=== PATIENT | male | born 1990 | race Caucasian/White ===

== ENCOUNTER 2017-03-20 20:37 | Emergency (ER) | payer SELFPAY ==
[2017-03-20 21:08] LABS: Hematocrit 50 % (42-52); Hemoglobin 16.8 g/dl (14.0-18.0); Mean Corpuscular HGB Conc 34 g/dl (31-36); Mean Corpuscular Hemoglobin 30 pg (27-31); Mean Corpuscular Volume 90 fL (80-94); Mean Platelet Volume 9 um3 (7.4-10.4); Red Blood Count 5.54 10^6/ul (4.0-5.4); Red Cell Distribution Width 13 % (10.5-15); White Blood Count 8.1 10^3/ul (3.5-10.8)
[2017-03-20 21:21] LABS: BUN/Creatinine Ratio 8.5 (8-20); Calcium 9.3 mg/dL (8.6-10.3); EGFR African American 109.5 (>60); EGFR Non-African American 85.1 (>60); Potassium 3.7 mmol/L (3.5-5.0)
--- NOTE | 2017-03-20 21:30 | RAD ---
INDICATION: Head injury. COMPARISON: There are no prior studies available for comparison. TECHNIQUE: Contiguous axial sections of the brain were obtained from the skull base to the vertex without contrast. FINDINGS: The ventricles, cisterns and sulci are within normal limits. No significant focal abnormality or mass effect is seen. There is no evidence for hemorrhage. No significant focal osseous abnormality is seen. The visualized portion of the paranasal sinuses and mastoid air cells appear clear. IMPRESSION: NO EVIDENCE FOR ACUTE INTRACRANIAL ABNORMALITY.
--- NOTE | 2017-03-20 21:35 | ED ---
Lucy Amezquita Edward, scribed for Obi Darden MD on 03/20/17 at 2049 . Substance Abuse/Use - HPI Summary HPI Summary: 26 y/o male brought in by police to ED for EtOH abuse tonight at a concert and s /p fall earlier tonight, per police. Patient does not remember the fall but presents to the ED with a forehead abrasion and injured L elbow. At triage, the patient c/o throbbing ENGLISH rated 3/10 in severity. The L elbow is wrapped. The patient was intoxicated today at a concert and became violent, per police. Patient has calmed down in the ED. Patient denies any other drug use. - History Of Current Complaint Chief Complaint: EDSubstanceAbuse Stated Complaint: 2208 Time Seen by Provider: 03/20/17 20:46 Hx Obtained From: Patient Onset/Duration of Drug/ETOH Abuse: Hours - Starting today Timing Of Abuse: Binge Use - Grassroots Associated Signs And Symptoms: Other: - Forehead abrassion and L elbow injury - Allergies/Home Medications Allergies/Adverse Reactions: Allergies Allergy/AdvReac Type Severity Reaction Status Date / Time No Known Allergies Allergy Verified 03/20/17 20:59 PMH/Surg Hx/FS Hx/Imm Hx Previously Healthy: Yes Cardiovascular History: Denies: Hx Myocardial Infarction Respiratory History: Denies: Hx Chronic Obstructive Pulmonary Disease (COPD) Sensory History: Denies: Hx Legally Blind Psychiatric History: Denies: Other Psychiatric Issues/Disorders Infectious Disease History: Denies: Traveled Outside the [place] in Last 30 Days - Social History Occupation: Employed Full-time - [employer] Alcohol Use: Weekly Hx Substance Use: No Substance Use Type: Reports: None Hx Tobacco Use: Yes Smoking Status (MU): Light Every Day Tobacco Smoker Type: Cigarettes Do You Chew or Dip Tobacco: No Review of Systems Constitutional: Negative Eyes: Negative ENT: Negative Cardiovascular: Negative Respiratory: Negative Gastrointestinal: Negative Genitourinary: Negative Musculoskeletal: Other - L elbow injury Skin: Other - Forehead abrasion Positive: Headache Psychological: Normal All Other Systems Reviewed And Are Negative: Yes Physical Exam Triage Information Reviewed: Yes Vital Signs On Initial Exam: Initial Vitals Temp Pulse Resp BP Pulse Ox 98.3 F 98 20 155/131 95 03/20/17 20:42 03/20/17 20:42 03/20/17 20:42 03/20/17 20:42 03/20/17 20:42 Vital Signs Reviewed: Yes Appearance: Positive: Well-Appearing, No Pain Distress Skin: Positive: Warm Head/Face: Positive: Other - abrasion to forhead Eyes: Positive: EOMI, SUNDAR ENT: Positive: TMs normal Neck: Positive: Supple, Nontender Respiratory/Lung Sounds: Positive: Clear to Auscultation, Breath Sounds Present Cardiovascular: Positive: RRR Abdomen Description: Positive: Nontender, Soft Bowel Sounds: Positive: Present Neurological: Positive: Sensory/Motor Intact, Alert, Oriented to Person Place, Time, Normal Gait Diagnostics - Vital Signs Vital Signs Temp Pulse Resp BP Pulse Ox 03/20/17 20:42 98.3 F 98 20 155/131 95 - Laboratory Lab Results: Lab Results 03/20/17 03/20/17 Range/Units 21:00 21:00 WBC 8.1 (3.5-10.8) 10^3/ul RBC 5.54 H (4.0-5.4) 10^6/ul Hgb 16.8 (14.0-18.0) g/dl Hct 50 (42-52) % MCV 90 (80-94) fL MCH 30 (27-31) pg MCHC 34 (31-36) g/dl RDW 13 (10.5-15) % Plt Count 209 (150-450) 10^3/ul MPV 9 (7.4-10.4) um3 Neut % (Auto) 47.0 (38-83) % Lymph % (Auto) 36.7 (25-47) % [place] % (Auto) 13.8 H (1-9) % Eos % (Auto) 1.4 (0-6) % Baso % (Auto) 1.1 (0-2) % Absolute Neuts (auto) 3.8 (1.5-7.7) 10^3/ul Absolute Lymphs (auto) 3.0 (1.0-4.8) 10^3/ul Absolute Monos (auto) 1.1 H (0-0.8) 10^3/ul Absolute Eos (auto) 0.1 (0-0.6) 10^3/ul Absolute Basos (auto) 0.1 (0-0.2) 10^3/ul Absolute Nucleated RBC 0.01 10^3/ul Nucleated RBC % 0.1 Sodium 140 (133-145) mmol/L Potassium 3.7 (3.5-5.0) mmol/L Chloride 106 (101-111) mmol/L Carbon Dioxide 25 (22-32) mmol/L Anion Gap 9 (2-11) mmol/L BUN 9 (6-24) mg/dL Creatinine 1.06 (0.67-1.17) mg/dL Est GFR ( Amer) 109.5 (>60) Est GFR (Non-Af Amer) 85.1 (>60) BUN/Creatinine Ratio 8.5 (8-20) Glucose 95 (70-100) mg/dL Calcium 9.3 (8.6-10.3) mg/dL Serum Alcohol Pending Result Diagrams: 03/20/17 21:00 03/20/17 21:00 Lab Statement: Any lab studies that have been ordered have been reviewed, and results considered in the medical decision making process. - CT BRAIN CT CT Interpretation: No Acute Changes - NO EVIDENCE FOR ACUTE INTRACRANIAL ABNORMALITY. CT Interpretation Completed By: Radiologist Re-Evaluation - Re-Evaluation First Eval Change: Improved Course/Dx - Course Assessment/Plan: 26 y/o male brought in by police to ED for EtOH abuse tonight at a concert and s/p fall earlier tonight, per police. Patient does not remember the fall but presents to the ED with a forehead abrasion and injured L elbow. BRAIN CT SHOWS NO EVIDENCE FOR ACUTE INTRACRANIAL ABNORMALITY. After waiting for blood alcohol levels to drop, pt discharged home. - Diagnoses Provider Diagnoses: Substance abuse Discharge - Discharge Plan Condition: Improved Disposition: HOME Patient Education Materials: Abuse of Alcohol (ED) The documentation as recorded by the Lucy gonzáles Edward accurately reflects the service I personally performed and the decisions made by , Obi Darden MD.
[2017-03-21 04:52] VITALS: BP 91/51
== END 2017-03-21 05:01 | disposition home or self-care (01) ==
LOC: ED 20:37
DX: F10.10 Alcohol abuse, uncomplicated (principal); Y90.8 Blood alcohol level of 240 mg/100 ml or more; S00.81XA Abrasion of other part of head, initial encounter; S59.902A Unspecified injury of left elbow, initial encounter; W19.XXXA Unspecified fall, initial encounter; Y93.89 Activity, other specified; Y92.89 Other specified places as the place of occurrence of the external cause; F17.210 Nicotine dependence, cigarettes, uncomplicated
CPT/HCPCS: 36415; 70450; 80048; 80320; 85025; 99284; G0480